=== PATIENT | male | born 1950 | race Caucasian/White ===

== ENCOUNTER → 2017-06-20 | Outpatient (CLI) | payer OTHER ==
--- NOTE | 2017-06-20 11:20 | DIAGNOSTIC IMAGING REPORT ---
KUB CLINICAL HISTORY: Nephrolithiasis. FINDINGS: 2 AP supine abdominal radiographs are compared to study dated 12/12/2014 and correlated with abdominal CT dated 12/31/2014. There is a nonobstructed abdominal bowel gas pattern. There are at least 3 nonobstructing calculi identified in each kidney measuring up to 5 mm. There is no radiographic evidence of ureteral stone. The skeletal structures are osteopenic. Lumbosacral spondylosis is observed. IMPRESSION: Small bilateral nonobstructing renal calculi as above. Electronically signed by: Mark Landry M.D. 06/20/2017 11:18 AM Dictated Date/Time: 06/20/2017 11:17 AM
== END | disposition home or self-care (01) ==
LOC: C.RAD 10:55
PROVIDERS: ATTEND Urology
DX: N20.0 Calculus of kidney (principal)

== ENCOUNTER 2020-03-07 10:20 | Observation (INO) ==
--- NOTE | 2020-02-07 14:18 | PAT Medication Instructions ---
Medication Instructions Date of Service February 07, 2020 Home Medications diclofenac sodium 1 % topical gel 2 gm TOP QID PRN montelukast 10 mg tablet 10 mg PO QAM pantoprazole 40 mg tablet,delayed release 40 mg PO QAM rivaroxaban 20 mg tablet 20 mg PO HS rosuvastatin 10 mg tablet 10 mg PO HS albuterol sulfate 1 inh INHALATION QID PRN cannabidiol 100 mg PO DAILY potassium citrate 15 meq PO QAM ASK your prescriber and surgeon rivaroxaban 20 mg tablet 20 mg PO HS (needs to be held 72 hours in order to get spinal anesthesia) STOP taking 24 hours before surgery diclofenac sodium 1 % topical gel 2 gm TOP QID PRN DO NOT take the morning of surgery montelukast 10 mg tablet 10 mg PO QAM potassium citrate 15 meq PO QAM cannabidiol 100 mg PO DAILY Take morning of surgery With a small sip of water, OTHERWISE NOTHING TO EAT OR DRINK AFTER MIDNIGHT: pantoprazole 40 mg tablet,delayed release 40 mg PO QAM albuterol sulfate 1 inh INHALATION QID PRN (use if needed; please bring with you to hospital day of surgery if possible) Take evening before surgery rosuvastatin 10 mg tablet 10 mg PO HS albuterol sulfate 1 inh INHALATION QID PRN (if needed) Other Notes If you have any questions please call us at [phone] or [phone] or [phone] or [phone]
--- NOTE | 2020-02-09 15:07 | PAT Medication Instructions ---
Medication Instructions Date of Service February 09, 2020 Home Medications diclofenac sodium 1 % topical gel 2 gm TOP QID PRN montelukast 10 mg tablet 10 mg PO QAM pantoprazole 40 mg tablet,delayed release 40 mg PO QAM rivaroxaban 20 mg tablet 20 mg PO HS rosuvastatin 10 mg tablet 10 mg PO HS albuterol sulfate 1 inh INHALATION QID PRN cannabidiol 100 mg PO DAILY potassium citrate 15 meq PO QAM ASK your prescriber and surgeon rivaroxaban 20 mg tablet 20 mg PO HS -- MUST BE HELD FOR AT LEAST 3 FULL DAYS BEFORE SURGERY FOR SPINAL ANESTHESIA. STOP taking 24 hours before surgery diclofenac sodium 1 % topical gel 2 gm TOP QID PRN DO NOT take the morning of surgery montelukast 10 mg tablet 10 mg PO QAM cannabidiol 100 mg PO DAILY potassium citrate 15 meq PO QAM Take morning of surgery With a small sip of water, OTHERWISE NOTHING TO EAT OR DRINK AFTER MIDNIGHT: pantoprazole 40 mg tablet,delayed release 40 mg PO QAM albuterol sulfate 1 inh INHALATION QID PRN (if needed) Take evening before surgery rosuvastatin 10 mg tablet 10 mg PO HS albuterol sulfate 1 inh INHALATION QID PRN (if needed) Other Notes If you have any questions please call us at [phone] or [phone] or [phone] or [phone]
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
[2020-02-10 10:19] LABS: Basophils # (auto) 0.02 K/uL (0-0.2); Basophils % (auto) 0.3 %; Eosinophils # (auto) 0.34 K/uL (0-0.5); Eosinophils % (auto) 5.1 %; Hematocrit (blood only) 43.3 % (42-52); Hemoglobin 14.6 g/dL (14.0-18.0); Immature Granulocytes # (auto) 0.01 K/uL (0.00-0.02); Immature Granulocytes % (auto) 0.2 %; Lymphocytes # (auto) 1.48 K/uL (1.2-3.4); Lymphocytes % (auto) 22.3 %; Mean Corpuscular Hemoglobin 30.6 pg (25-34); Mean Corpuscular Hgb Conc 33.7 g/dL (32-36); Mean Corpuscular Volume 90.8 fL (80-100); Mean Platelet Volume 10.7 fL (7.4-10.4); Monocytes # (auto) 0.55 K/uL (0.11-0.59); Monocytes % (auto) 8.3 %; Neutrophils # (auto) 4.23 K/uL (1.4-6.5); Neutrophils % (auto) 63.8 %; Platelet Count 183 K/uL (130-400); RDW Coefficient of Variation 13.4 % (11.5-14.5); RDW Standard Deviation 44.6 fL (36.4-46.3); Red Blood Count 4.77 M/uL (4.7-6.1); White Blood Count 6.63 K/uL (4.8-10.8)
--- NOTE | 2020-02-10 10:21 | XRay Report ---
XR chest Pre-admission PA/Lat HISTORY: 70 years-old Male pat preoperative exam. No acute chest complaints. COMPARISON: Chest radiographs 08/17/2013 TECHNIQUE: PA and lateral views of the chest FINDINGS: Cardiomediastinal and hilar silhouettes are within normal limits. There is no pneumothorax, pleural e ffusion, overt pulmonary edema or airspace consolidation typical for pneumonia. Ill-defined 11 mm lat eral left lung base opacity on the frontal view, not definitively seen on the lateral projection. Dorothea gs are mildly hyperinflated. Degenerative changes of the shoulders and spine. IMPRESSION: 1. Mild hyperinflation without acute process. 2. Ill-defined 11 mm lateral left lung base opacity may correlate with a nipple shadow. This could be correlated with follow-up radiograph with nipple markers. ACT 112: Negative or not required by law. The above report was generated using voice recognition software. It may contain grammatical, syntax o r spelling errors. Electronically signed by: Randolph Barrios M.D. 02/10/2020 10:19 AM
[2020-02-10 10:29] LABS: INR 1.1 (0.9-1.1); Partial Thromboplastin Ratio 1.3; Prothrombin Time 11.8 Seconds (9.0-12.0)
[2020-02-10 10:47] LABS: BUN Creatinine Ratio 12.4 (10-20); Creatinine Clr Calc Pharmacy 88.1 ml/min; Est GFR (African American) 85.7; Potassium 4.6 mmol/L (3.5-5.1)
--- NOTE | 2020-02-10 16:15 | Electrocardiogram Report ---
Test Reason : Blood Pressure : / mmHG Vent. Rate : 050 BPM Atrial Rate : 050 BPM P-R Int : 224 ms QRS Dur : 118 ms QT Int : 452 ms P-R-T Axes : 048 -50 -14 degrees QTc Int : 412 ms Sinus bradycardia with 1st degree A-V block Left anterior fascicular block Abnormal ECG No previous ECGs available Confirmed by Willian King ([id number]) on 02/10/2020 4:15:17 PM Referred By: Eulalio Guerrero Confirmed By:Willian King
--- NOTE | 2020-03-03 20:38 | History and Physical Report ---
DATE OF ADMISSION: 03/07/2020 CHIEF COMPLAINT: Bilateral knee pain and discomfort, left side greater than the right. HISTORY OF PRESENT ILLNESS: The patient is a 70-year-old gentleman, previous site superintendent of the [employer], who presents for treatment of his knees, specifically his left knee. He has got a several year history of left knee pain and discomfort that has gradually gotten worse over time. He did have a history of knee arthroscopy done in [place] in April of last year. It did not help at all. Things have just gotten worse. He has been pretty miserable with this. He has been through extensive conservative treatment including multiple aspirations and injections with steroids and viscosupplementation, which has not helped. Pain is mostly medial. He does have some global pain. His walking tolerance is about half a mile. He is fed up with this and it is limiting his lifestyle and he would like to have his left knee fixed. Over the past several months, he has developed pain in his right knee in a similar fashion. Not quite as severe. It does swell some. PAST MEDICAL HISTORY: Significant for, 1. Atrial fibrillation, on Xarelto. 2. Elevated cholesterol. 3. Asthma/COPD. 4. Mild obesity with a BMI of 34. 5. Kidney stones. 6. Sleep apnea. PAST SURGICAL HISTORY: Includes, 1. Laminectomy in 1987. 2. Left knee scope in 04/2019. ALLERGIES: SULFA AND PENICILLIN, WHICH BOTH CAUSE A RASH. CURRENT MEDICINES: Include, 1. Topical diclofenac. 2. Montelukast 10 mg. 3. Pantoprazole 40 mg. 4. Potassium 15 mEq a day. 5. Xarelto 20 mg a day. 6. Rosuvastatin 10 mg a day. SOCIAL HISTORY: A 70-year-old male. He is . Lives alone, lives with his dog. One drink per week. Chews snuff. One child. Does not smoke. FAMILY HISTORY: Significant for heart disease. REVIEW OF SYSTEMS: Significant for atrial fibrillation, on Xarelto, although his EKG preoperatively is sinus bradycardia. Denies any chest pain or shortness of breath. No history of DVT or PE. No known bleeding problems. PHYSICAL EXAMINATION: GENERAL: Shows a pleasant, fairly large middle-aged male. Looks to be in pretty good health. HEENT: Benign. NECK: Supple, no lymphadenopathy. LUNGS: Clear to auscultation. HEART: Has regular rate and rhythm. ABDOMEN: Soft, nontender, nondistended. EXTREMITIES: Grossly neurovascularly intact except as follows: Examination of left knee reveals the patient who walks independently. He does limp on the left side. He has got varus alignment to his knee with a moderate sized knee effusion. He is tender over the medial joint line. Range of motion about 5-10 degrees short of full extension to 120 degrees of flexion. There is no instability. Examination of the right knee reveals just a slight varus alignment. Small to moderate knee effusion. He is tender medially. Range of motion is 5-125. X-RAYS: X-rays of the left knee were reviewed. It shows advanced left knee medial compartment DJD. Looks like he has got a segment of avascular necrosis in the medial femoral condyle. He has got a little bit of tibial femoral subluxation. MRI of his knee from preoperatively revealed a full thickness cartilage loss of the medial tibial plateau and some subchondral marrow edema. He has got marrow edema in the medial femoral condyle as well. 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 He has failed conservative treatment including knee arthroscopy. He would like to have his left knee fixed. I do think his right knee is following behind. PLAN: We will take him to the operating room and do a left total knee replacement. The risks and benefits of this procedure were explained to the patient and include but not limited to DVT, PE, , infection, neurological injury, vascular injury, bleeding problem, pain, limited range of motion, stiffness, failure to relieve symptoms, incomplete relief of symptoms, need for further surgery in the future, fracture, leg length inequality, nerve palsy, persistent pain, etc. The patient understands and desires to proceed. Informed consent was obtained. His right knee is bothering him as well. We may consider aspirating and/or injecting this under anesthesia. We will check with him on the morning of surgery and make a definitive plan on that. He does know to hold the Xarelto 3 days preop. We will use Xarelto for DVT prophylaxis. He is planning to be discharged to home using [facility] home health program. He does live by himself. I did tell him that he might need some help.
[~2020-03-07 10:20] MED LIST: ACETAMINOPHEN 500 MG TAB PO SCH; BUPIVACAINE 0.5 % 5 MG/1 ML PF 10ML VIAL ONE; BUPIVACAINE LIPOSOME/PF 266 MG, BUPIVACAINE/EPINEPHRINE 50 ML, SODIUM CHLORIDE 0.9% 30 ... INFIL SCH; FAMOTIDINE 20 MG TAB PO SCH; GABAPENTIN 300 MG CAP PO SCH; LR 500ML BOLUS, THEN 15ML/HR IV SCH; LR 60ML/HR IV SCH; TRANEXAMIC ACID 1,000 MG **IV Intra-op IV SCH; ceFAZolin 2000MG 2,000 MG/15 ML SYR IV SCH
--- NOTE | 2020-03-07 10:32 | History & Physical Bridge Note ---
Date of Service March 07, 2020 History & Physical Bridge Note I have examined the patient, reviewed the History & Physical and in the interval since the performance of the History & Physical I have noted the following changes of clinical significance: Patient with increasing right knee pain and swelling. Desires aspiration of left knee under anesthesia. Added to consent.
--- NOTE | 2020-03-07 10:42 | History & Physical Bridge Note ---
Date of Service March 07, 2020 History & Physical Bridge Note I have examined the patient, reviewed the History & Physical and in the interval since the performance of the History & Physical I have noted the following changes of clinical significance: Correction from previous bridge note. We will aspirate the right knee
[2020-03-07] MEDS ORDERED: PROPOFOL IV EMULSION 10 MG/ML 20 ML VIAL IV ONE ×3 (10:52→14:28)
[2020-03-07] MEDS ORDERED: LIDOCAINE HCL 2% 2 ML VIAL/AMP(20MG/ML) INFIL ONE (10:52)
[2020-03-07] MEDS ORDERED: MIDAZOLAM HCL 1 MG/ML 2ML VIAL ONE ×2 (10:53)
[2020-03-07] MEDS ORDERED: SODIUM CHLORIDE 0.9% PF 50 ML VIAL ONE (11:27)
[2020-03-07] MEDS ORDERED: BUPIVACAINE LIPOSOME 1.3% 266 MG/20 ML VIAL ONE (11:27)
[2020-03-07] MEDS ORDERED: BACITRACIN INJ 50,000 UNIT VIAL ONE (11:28)
[2020-03-07] MEDS ORDERED: EPINEPHrine INJ 1 MG/ML AMP ONE (11:28)
[2020-03-07] MEDS ORDERED: BUPIVACAINE 0.25% 30 ML VIAL ONE (11:28)
[2020-03-07] MEDS ORDERED: ePHEDrine sulfate 50 MG/ML AMP IV PRN (12:01)
[2020-03-07] MEDS ORDERED: fentaNYL citrate 100 MCG/2 ML VIAL IV PRN (12:01)
[2020-03-07] MEDS ORDERED: ATROPINE SULFATE 0.1 MG/ML 10ML SYR IV PRN (12:01)
[2020-03-07] MEDS ORDERED: ONDANSETRON INJ 2 MG/ML 2 ML VIAL IV PRN ×2 (12:01→15:51)
[2020-03-07] MEDS ORDERED: ePHEDrine sulfate 50 MG/ML AMP ONE (14:28)
--- NOTE | 2020-03-07 14:30 | Post Operative Brief Note ---
PG Immediate Post Op with CF Date of Surgery March 07, 2020 Pre & Post Diagnosis Operation Date: 03/07/20 12:30 Pre-Op Diagnosis: Left Knee Degenerative Joint Disease; Right Knee Effusion Post-Op Diagnosis: Left Knee Degenerative Joint Disease; Right Knee Effusion I identified the patient and participated in the time-out.: Yes Procedure Operation Date: 03/07/20 12:30 Actual Procedures p Left Total Knee Arthroplasty(Left) - Eulalio Guerrero MD Right Knee Aspiration Surgeon Eulalio Guerrero MD Educational Administration Teacher Machelle, YEE Estimated Blood Loss 50 Findings Consistent with Post-Op Diagnosis Fluids 2700 cc Specimens Specimen Description: A. Left knee bone and tissue. Drains Hennessy Catheter and Hemovac Drain Anesthesia Type Spinal MAC Complications none Disposition Accompanied Patient To Recovery: No Disposition: Recovery Room
--- NOTE | 2020-03-07 15:05 | Anesthesiology Progress Note ---
Date of Service March 07, 2020 Anesthesia Post Procedure Vital Signs Vital Signs: Temp Pulse Pulse Resp BP BP Pulse Ox 03/07/20 14:55 59 L 20 101/75 93 03/07/20 14:45 60 12 110/75 95 03/07/20 14:37 98.2 F 66 15 106/68 94 03/07/20 11:52 64 20 120/71 95 03/07/20 10:56 98.1 F 66 18 138/84 97 Transfer of Care Handoff Completed per policy Notes Mental Status: alert / awake / arousable and participated in evaluation Patient Amnestic to Procedure: Yes Nausea / Vomiting: adequately controlled Pain: adequately controlled Airway Patency, RR, SpO2: stable & adequate BP & HR: stable & adequate Hydration State: stable & adequate Neuraxial Anesthesia: was administered and sensory block is resolving Anesthetic Complications: no major complications apparent and Pt Satisfied with anesthetic care
--- NOTE | 2020-03-07 15:08 | XRay Report ---
TWO VIEWS LEFT KNEE CLINICAL HISTORY: Postoperative examination. FINDINGS: AP and crosstable lateral portable views of the left knee are obtained. A left knee arthrop lasty is in near anatomic alignment. There has been undersurface remodeling of the patella. No acute fracture is seen. There are expected postoperative changes around the knee including skin clips, soft tissue edema, and subcutaneous gas. IMPRESSION: Expected postoperative changes status post left knee arthroplasty. No acute fracture is s een. ACT 112: Negative or not required by law. Electronically signed by: Mark Landry M.D. 03/07/2020 3:07 PM
[2020-03-07] MEDS ORDERED: ALBUTEROL HFA 8 GM INHALER INH PRN (15:51)
[2020-03-07] MEDS ORDERED: NALOXONE HCL 0.4 MG/1 ML VIAL/CARP IV PRN (15:51)
[2020-03-07] MEDS ORDERED: bisacodyL 10 MG SUPP PR PRN (15:51)
[2020-03-07] MEDS ORDERED: ALUMINUM/MAGNESIUM SUSP 30 ML UDC PO PRN (15:51)
[2020-03-07] MEDS ORDERED: MAGNESIUM HYDROXIDE SUSP 30 ML UDC PO PRN (15:51)
[2020-03-07] MEDS ORDERED: METOCLOPRAMIDE HCL INJ 5 MG/ML 2 ML VIAL IV PRN (15:51)
[2020-03-07] MEDS ORDERED: TAMSULOSIN HCL 0.4 MG CAP PO PRN (15:51)
[2020-03-07] MEDS ORDERED: HYDROmorphone INJ 0.5 MG/0.5 ML SYR IV PRN (15:51)
[2020-03-07] MEDS: SODIUM CHLORIDE 0.9% 1000ML 1,000 ML IV SCH ×2 (16:25→22:34)
[2020-03-07] MEDS: KETOROLAC TROMETHAMINE 15 MG/ML VIAL IV SCH ×2 (16:26→21:45)
[2020-03-07] MEDS: ASCORBIC ACID 500 MG TAB PO SCH (17:22)
[2020-03-07] MEDS: FERROUS GLUCONATE 324 MG TAB PO SCH (17:22)
--- NOTE | 2020-03-07 17:42 | Operative Report ---
Post Operative Report Pre & Post Diagnosis Operation Date: 03/07/20 12:30 Pre-Op Diagnosis: Left Knee Degenerative Joint Disease; Right Knee Effusion Post-Op Diagnosis: Left Knee Degenerative Joint Disease; Right Knee Effusion I identified the patient and participated in the time-out.: Yes Procedure Operation Date: 03/07/20 12:30 Actual Procedures p Left Total Knee Arthroplasty(Left) Right knee aspiration.- Eulalio Guerrero MD Surgeon Eulalio Guerrero MD Legal Advisor Machelle, YEE Estimated Blood Loss 50 Findings Consistent with Post-Op Diagnosis Operative findings revealed advanced left knee DJD with extensive grade 4 [id number] disease in the medial and patellofemoral compartments. He had a large knee joint effusion. Fluids 2700 cc. Specimens Left knee sent for pathology. Drains None. Anesthesia Type Spinal MAC Complications none Disposition Disposition: Recovery Room Indications Patient is a 70-year-old very active gentleman is had a year history of left knee pain greater in the right. He went through extensive conservative treatment A new knee arthroscopy done about 10 months ago done elsewhere. Did not get any relief from this and things of only gotten worse. X-rays show progressive the medial compartment arthritis. Failed all conservative care. He elected proceed with surgical treatment. Over the past several months he is developed increased pain and discomfort and swelling in his right knee peers had recurrent swelling which is been incapacitating. He like to have his right knee aspirated. Radiographs on this side were less than impressive and showed some mild knee arthritis. Description of Procedure Operative implants consist of: 1. Biomet Vanguard size 75 left posterior by femoral component. 2. Biomet size 83 tibial tray. 3. 10 mm posterior stabilized polyethylene insert. 4. 34 x 8 and half all poly-patella. Patient was taken to the operating identified and placed on the operating table supine position protectors were properly padded. IV antibiotics 5 by anesthesia team. A spinal anesthetic and abductor canal block had provided in the holding area. Hennessy cath was placed in sterile fashion. A left thigh turn was then placed. Attention was first drawn to the right knee. Nupathe right knee was prepped with alcohol. I then aspirated the right knee for about 20 to 25 cc of serous fluid it was not bloody and it looked noninflammatory. This was not sent for analysis. A 4 x 4 was placed over the aspiration site and followed by the Camilo mixon. Attention then drawn to the left leg. Left leg was elevated exsanguinated with use of an Esmarch and turns placed at 300 mmHg. An anterior approach to the left knee was then performed to longitudinal incision centered over the patella. Sharp dissection was got through subcutaneous tissue down to the extensor mechanism. A medial parapatellar arthrotomy incision was made. Some subperiosteal dissection was carried out medially. The fat pad was resected from each patella tendon. Lateral patellofemoral ligament was released. Patella was subluxated laterally and the knee was flexed. The osteophytes were taken off the distal femur. The ACL was absent. The PCL was released from the distal femur and the tibia subluxate anteriorly. The external tibial alignment jig was placed in the interface the tibia. I cannot really get this lateral enough so I elected to do an intramedullary cut. The tibial eminence was excised. I then reamed down the canal with a long intramedullary guide and then placed the tibial cutting guide on the intramedullary stem to a remove about a millimeter bone from most efficient aspect medial till plateau. Proximal tibial cut was made. The tibia sized to a size 83. Attention drawn the femur. The distal femur turned with a sharp drill bit intramedullary canal was suction. A left 6 degree valgus cutting guide was placed. Distal femoral cutting block was pinned in place but distal femoral cut was made to take an additional 3 mm of bone off the distal femur. The femur was then sized to a size 75. We did downsize a slightly. The AP cutting block was pinned parallel to the epicondylar axis which was 5 degrees external rotation. The anterior cut, anterior chamfer, posterior cut, posterior chamfer cuts were made. Box cutting guide was placed in just slight lateral box cut was made. The knee was flexed. The remnants of the medial lateral menisci were excised. The osteophytes were taken off the posterior aspect the femur. A trial femoral component was placed but the tibial tray was pinned in maximum external rotation and the drill and stem punch were used to create defect in proximal tip for the tibial tray. Knee was then trialed and the 10 mm insert fit most appropriately. Attention drawn the patella. Patella was cleaned of all soft tissues. Patella thickness measured 25 mm in thickness was cut down to 15. Sized to a size 34 patella. Locals were drilled for 34 patella. The lateral osteophyte is moved. Patella button was placed. Knee was taken through range of motion and the patella tracked nicely with no thumbs test. Attention drawn to place the permanent components. All trial components were removed. A bone plug was placed in the distal femur limit blood loss. I also placed a bone plug in the tibia to prevent cement extravasation down the canal. A double batch Palacos G cement was mixed. Biomet Vanguard size 75 left posterior by femoral component, size 83 tibial tray, a 10 mm posterior box polyethylene insert, and a 34 x 8 and half all poly- patella then cement in place. Knee was brought out in full extension total cement hardened. Final cement check was then performed. The pericapsular tissues were injected with total 100 cc of combination of 20 cc of Exparel, 30 cc normal saline, 50 cc of quarter percent Marcaine with epinephrine. Patient did receive 1 g of tranexamic acid per the tech was then let down for final tourniquet time of 74 minutes. Hemostasis assured use electrocautery. The wounds once again irrigated. Extensor mechanism closed with combination 1 PDS suture #1 Vicryl suture in [id number] fashion. Extensor mechanism checked found to be intact the subcutaneous tissue then closed with 2 Dexon suture in a buried interrupted fashion the skin was closed skin jenn. Leg was then cleaned dried a sterile dressing composed Xeroform, 4 x 4's, sterile cast padding, Abisai bandage were applied. Patient transferred to the recovery room in stable condition. Patient tolerated procedure well and there were no complications. Carlos Carty, my physician welder assistant, was present for the entire procedure. His assistance was required for proper patient positioning, prepping and draping, surgical exposure, performing the technical details of the operation, placement the implants, closure of the wound, and placement of the sterile bandage. I attest to the content of the Intraoperative Record and any orders documented therein. Any exceptions are noted below.
[2020-03-07] MEDS: ceFAZolin 2000MG 2,000 MG/15 ML SYR IV SCH (19:27)
[2020-03-07] MEDS: DOCUSATE SODIUM 100 MG CAP PO SCH (19:28)
[2020-03-07] MEDS: SENNA 8.6 MG TAB PO SCH (19:28)
[2020-03-07] MEDS ORDERED: TRANEXAMIC ACID / 0.7% NACL 1,000 MG/100 ML BAG IV SCH (20:30)
[2020-03-07] MEDS: TAPENTADOL HCL ER 50 MG TABCR PO SCH (20:57)
[2020-03-07] MEDS: ROSUVASTATIN CALCIUM 10 MG TAB PO SCH (20:57)
[2020-03-07] MEDS: ACETAMINOPHEN 500 MG TAB PO SCH (21:46)
[2020-03-08] MEDS: ceFAZolin 2000MG 2,000 MG/15 ML SYR IV SCH (03:48)
[2020-03-08] MEDS: KETOROLAC TROMETHAMINE 15 MG/ML VIAL IV SCH ×2 (03:48→09:50)
[2020-03-08] MEDS: SODIUM CHLORIDE 0.9% 1000ML 1,000 ML IV SCH (05:16)
[2020-03-08] MEDS: ACETAMINOPHEN 500 MG TAB PO SCH ×3 (05:35→21:12)
[2020-03-08 06:34] LABS: Hematocrit (blood only) 35.4 % (42-52); Hemoglobin 11.5 g/dL (14.0-18.0); Mean Corpuscular Hemoglobin 30.2 pg (25-34); Mean Corpuscular Hgb Conc 32.5 g/dL (32-36); Mean Corpuscular Volume 92.9 fL (80-100); Mean Platelet Volume 10.4 fL (7.4-10.4); Platelet Count 162 K/uL (130-400); RDW Coefficient of Variation 13.7 % (11.5-14.5); Red Blood Count 3.81 M/uL (4.7-6.1); White Blood Count 8.04 K/uL (4.8-10.8)
[2020-03-08 07:01] LABS: BUN Creatinine Ratio 12.6 (10-20); Creatinine Clr Calc Pharmacy 89.7 ml/min; Est GFR (African American) 88.9; Est GFR (Non-African American) 76.7; Potassium 4.1 mmol/L (3.5-5.1)
--- NOTE | 2020-03-08 07:35 | Orthopedic Progress Note ---
Date of Service March 08, 2020 Assessment & Plan (1) Status post total left knee replacement: He was seen and examined by Dr. Guerrero today. Continue PT/OT DVT prophylaxis: teds, scds, xarelto d/c planning: pt would like to go to [facility] rehab pain controlled. Admission and Anticipated Discharge Date Admission Date: March 07, 2020 Subjective 70 y/o male POD #1 left tka. He has some knee pain, but it is controlled.Not able to lift his leg on his own. Denies chest pain or shortness of breath. Physical Exam Physical Exam: alert and oriented. VSS Left knee: some dried blood drainage on the dressing. Dressing intact. He can DF/PF. NVI Results & Data ([facility]) Vital Signs (Past 12 Hours) Vital Signs Temp Pulse Resp BP Pulse Ox 03/08/20 03:48 36.7 C 71 20 117/69 95 03/07/20 23:12 36.7 C 73 18 129/69 93 PG Care Time/CCT Total # of Minutes Spent Total Time Spent with Patient: Total time spent is greater than 50% in coordination of care (as documented) at patient's floor/unit and/or counseling patient: Coding Level of Care Code None Diagnoses Status post total left knee replacement Z96.652
[2020-03-08] MEDS: oxyCODONE HCL IR 5 MG TAB (IMMEDIATE RELEASE) PO PRN ×2 (07:53→17:10)
--- NOTE | 2020-03-08 08:04 | Anesthesiology Progress Note ---
Date of Service March 08, 2020 Anesthesia Post Procedure Vital Signs Vital Signs: Temp Pulse Pulse Pulse Pulse Resp BP 03/08/20 07:00 36.6 C 63 18 03/08/20 03:48 36.7 C 71 20 03/07/20 23:12 36.7 C 73 18 03/07/20 18:32 36.3 C L 60 16 146/76 H 03/07/20 17:45 36.4 C L 58 L 16 158/94 H 03/07/20 16:42 36.5 C 56 L 16 03/07/20 16:12 36.4 C L 61 16 03/07/20 15:40 36.7 C 59 L 16 03/07/20 15:05 36.7 C 57 L 13 03/07/20 14:55 59 L 20 03/07/20 14:45 60 12 03/07/20 14:37 36.8 C 66 15 03/07/20 11:52 64 20 120/71 03/07/20 10:56 36.7 C 66 18 138/84 BP Pulse Ox 03/08/20 07:00 124/71 95 03/08/20 03:48 117/69 95 03/07/20 23:12 129/69 93 03/07/20 18:32 97 03/07/20 17:45 98 03/07/20 16:42 149/79 H 99 03/07/20 16:12 130/79 97 03/07/20 15:40 126/72 95 03/07/20 15:05 113/72 95 03/07/20 14:55 101/75 93 03/07/20 14:45 110/75 95 03/07/20 14:37 106/68 94 03/07/20 11:52 95 03/07/20 10:56 97 Pain Intensity Left Knee: Pain Intensity: 0 Notes Mental Status: alert / awake / arousable Nausea / Vomiting: adequately controlled Pain: adequately controlled Airway Patency, RR, SpO2: stable & adequate BP & HR: stable & adequate Hydration State: stable & adequate Neuraxial Anesthesia: was administered and sensory block resolved Anesthetic Complications: no major complications apparent and Pt Satisfied with anesthetic care
[2020-03-08] MEDS ORDERED: POTASSIUM CITRATE 15 MEQ PO SCH (09:00)
[2020-03-08] MEDS: MEDICAL MARIJUANA PO SCH (09:17)
[2020-03-08] MEDS: TAPENTADOL HCL ER 50 MG TABCR PO SCH ×2 (09:49→21:12)
[2020-03-08] MEDS: MONTELUKAST SODIUM 10 MG TABLET PO SCH (09:49)
[2020-03-08] MEDS: PANTOprazole 40 MG TAB PO SCH (09:49)
[2020-03-08] MEDS: FERROUS GLUCONATE 324 MG TAB PO SCH ×2 (09:49→17:13)
[2020-03-08] MEDS: ASCORBIC ACID 500 MG TAB PO SCH ×2 (09:49→17:13)
[2020-03-08] MEDS: MULTIVITAMIN TAB PO SCH (09:49)
[2020-03-08] MEDS: DOCUSATE SODIUM 100 MG CAP PO SCH ×2 (09:50→21:12)
[2020-03-08] MEDS ORDERED: RIVAROXABAN 10 MG TABLET PO SCH ×2 (18:00)
[2020-03-08] MEDS: SENNA 8.6 MG TAB PO SCH (21:12)
[2020-03-08] MEDS: ROSUVASTATIN CALCIUM 10 MG TAB PO SCH (21:13)
[2020-03-09] MEDS: oxyCODONE HCL IR 5 MG TAB (IMMEDIATE RELEASE) PO PRN ×2 (00:03→07:32)
[2020-03-09] MEDS: ACETAMINOPHEN 500 MG TAB PO SCH (05:37)
[2020-03-09] MEDS: TAPENTADOL HCL ER 50 MG TABCR PO SCH (07:32)
[2020-03-09] MEDS: PANTOprazole 40 MG TAB PO SCH (07:33)
[2020-03-09] MEDS: MULTIVITAMIN TAB PO SCH (07:33)
[2020-03-09] MEDS: MONTELUKAST SODIUM 10 MG TABLET PO SCH (07:33)
[2020-03-09] MEDS: DOCUSATE SODIUM 100 MG CAP PO SCH (07:33)
[2020-03-09] MEDS: FERROUS GLUCONATE 324 MG TAB PO SCH (07:33)
[2020-03-09] MEDS: ASCORBIC ACID 500 MG TAB PO SCH (07:33)
[2020-03-09] MEDS: MEDICAL MARIJUANA PO SCH (07:34)
--- NOTE | 2020-03-09 11:08 | Progress Notes ---
DATE: 03/09/2020 SUBJECTIVE: A 70-year-old gentleman postop day 2 from a left knee replacement and right knee aspiration. He is doing pretty well. The right knee is feeling quite a bit better. The left knee is pretty sore. No chest pain or shortness of breath. Not feeling dizzy or lightheaded. OBJECTIVE: VITAL SIGNS: Temperature 36.9. Vital signs stable. GENERAL: Shows a pleasant, middle-aged male. He is walking around his room with a therapist when I visited him this morning. EXTREMITIES: Examination of the left leg reveals the dressing to be clean, dry and intact. His calf is soft and supple. Moderate swelling. He can dorsiflex and plantarflex his foot appropriately. ASSESSMENT: A 70-year-old gentleman postoperative day 2 from left knee replacement and right knee aspiration. Doing okay. Having some pain, which is not expected. Seems to be pretty well managed. PLAN: 1. DVT prophylaxis including thigh-high TEDs, SCDs, and back on Xarelto at a prophylactic dose and discharge on a therapeutic dose. 2. PT/OT. He can weight bear as tolerated. Left total knee protocol. 3. Pain control, doing okay with current pain regimen. 4. Disposition: He is hoping to be discharged to [facility] for a brief rehab stay as he lives by himself. He is orthopedically stable for discharge at any time a bed is available and he can be approved and accepted.
--- NOTE | 2020-03-13 09:26 | Discharge Summary ---
Date of Service March 13, 2020 Admission HPI Per Admitting Provider Documented in the H & P Admission Exam (Per Admitting) Constitutional Documented in the H & P Discharge Data Consultations 03/07/20 15:51 Consult Case Management - Discharge Planning Routine Procedures Performed Operation Date: 03/07/20 12:30 Actual Procedures p Left Total Knee Arthroplasty(Left) - Eulalio Guerrero MD Hospital Course (1) Status post total left knee replacement: This patient is a 70 year old male admitted on 03/07/20 and underwent left total knee replacement and right knee aspiration. He tolerated the procedure well and there were no complications. Transferred to the PACU post op and later to the orthopedic floor for further care. He was given ancef for antibiotic prophylaxis. He was also given CLIFFORD stockings, SCDs, and xarelto for DVT prophylaxis. Hemoglobin, hematocrit, and vital signs were monitored during his hospital stay and remained stable. Did not require any blood transfusions. There were no complications during his hospital stay. By post op day #2 the patient was tolerating a regular diet, pain was reasonably controlled with oral pain medicine, and he was participating in physical therapy. On post op day #2 the patient was discharged to a rehab facility. He was given printed discharge instructions including prescriptions for extra strength tylenol and oxycodone. Continue physical therapy, weight bearing as tolerated. Continue CLIFFORD stockings. Follow up approximately 2 weeks post op or sooner if there are problems or concerns. Coding Level of Care Code None Diagnoses Status post total left knee replacement Z96.652
== END 2020-03-09 12:42 ==
LOC: ASU 10:20 → 3E 10:20

== ENCOUNTER 2020-08-31 05:31 | Observation (INO) ==
--- NOTE | 2020-08-10 15:07 | PAT Medication Instructions ---
Medication Instructions Date of Service August 10, 2020 Home Medications diclofenac sodium 1 % topical gel 2 gm TOP QID PRN montelukast 10 mg tablet 10 mg PO QAM pantoprazole 40 mg tablet,delayed release 40 mg PO QAM rivaroxaban 20 mg tablet 20 mg PO HS rosuvastatin 10 mg tablet 10 mg PO HS albuterol sulfate 1 inh INHALATION QID PRN potassium citrate 15 meq PO QAM ASK your prescriber and surgeon rivaroxaban 20 mg tablet 20 mg PO HS (in order for spinal anesthesia, Rivaroxaban/Eliquis needs to be stopped 72 hours/3 days before surgery. Please check if okay with doctor that prescribes this to you) STOP taking 24 hours before surgery diclofenac sodium 1 % topical gel 2 gm TOP QID PRN DO NOT take the morning of surgery montelukast 10 mg tablet 10 mg PO QAM potassium citrate 15 meq PO QAM Take morning of surgery With a small sip of water, OTHERWISE NOTHING TO EAT OR DRINK AFTER MIDNIGHT: pantoprazole 40 mg tablet,delayed release 40 mg PO QAM albuterol sulfate 1 inh INHALATION QID PRN (use if needed; please bring with you to hospital day of surgery if possible) Take evening before surgery rosuvastatin 10 mg tablet 10 mg PO HS albuterol sulfate 1 inh INHALATION QID PRN (if needed) Other Notes If you have any questions please call us at [phone] or [phone] or [phone] or [phone]
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
--- NOTE | 2020-08-16 10:13 | XRay Report ---
XR chest Pre-admission PA/Lat HISTORY: 70 years-old Male pat preoperative exam. No acute chest complaints COMPARISON: Chest radiograph 02/10/2020 TECHNIQUE: PA and lateral views of the chest FINDINGS: Cardiomediastinal and hilar silhouettes are within normal limits. There is no pneumothorax, pleural e ffusion, airspace consolidation or overt pulmonary edema. Probable nipple shadow of the left lung bas e, 10 mm. Findings suggest prior resection of the distal right clavicle. Degenerative changes of the shoulders and spine. IMPRESSION: No acute process. ACT 112: Negative or not required by law. The above report was generated using voice recognition software. It may contain grammatical, syntax o r spelling errors. Electronically signed by: Randolph Barrios M.D. 08/16/2020 10:12 AM
[2020-08-16 10:47] LABS: Basophils # (auto) 0.01 K/uL (0-0.2); Basophils % (auto) 0.2 %; Eosinophils # (auto) 0.34 K/uL (0-0.5); Eosinophils % (auto) 5.9 %; Hematocrit (blood only) 43.9 % (42-52); Hemoglobin 14.5 g/dL (14.0-18.0); Immature Granulocytes # (auto) 0.01 K/uL (0.00-0.02); Immature Granulocytes % (auto) 0.2 %; Lymphocytes # (auto) 1.03 K/uL (1.2-3.4); Lymphocytes % (auto) 17.9 %; Mean Corpuscular Hemoglobin 29.3 pg (25-34); Mean Corpuscular Volume 88.7 fL (80-100); Mean Platelet Volume 10.8 fL (7.4-10.4); Monocytes # (auto) 0.53 K/uL (0.11-0.59); Monocytes % (auto) 9.2 %; Neutrophils # (auto) 3.85 K/uL (1.4-6.5); Neutrophils % (auto) 66.6 %; Platelet Count 208 K/uL (130-400); RDW Coefficient of Variation 14.3 % (11.5-14.5); RDW Standard Deviation 46.5 fL (36.4-46.3); Red Blood Count 4.95 M/uL (4.7-6.1); White Blood Count 5.77 K/uL (4.8-10.8)
[2020-08-16 11:03] LABS: Partial Thromboplastin Ratio 1.2; Partial Thromboplastin Time 31.2 Seconds (21.0-31.0); Prothrombin Time 10.6 Seconds (9.0-12.0)
[2020-08-16 11:47] LABS: BUN Creatinine Ratio 13.9 (10-20); Blood Urea Nitrogen 13 mg/dl (7-18); C Reactive Protein < 0.29 mg/dl (0-0.29); Calcium 9.7 mg/dl (8.5-10.1); Carbon Dioxide 28 mmol/L (21-32); Chloride 109 mmol/L (98-107); Creatinine Clr Calc Pharmacy 95.4 ml/min; Est GFR (African American) 94.7; Est GFR (Non-African American) 81.7; Glucose 95 mg/dl (70-99); Potassium 5.1 mmol/L (3.5-5.1); Sodium 140 mmol/L (136-145)
--- NOTE | 2020-08-26 19:38 | History and Physical Report ---
DATE OF ADMISSION: 08/31/2020 CHIEF COMPLAINT: Right knee pain, discomfort, swelling and instability. HISTORY OF PRESENT ILLNESS: The patient is a 70-year-old gentleman, previous school health assistant, who presents for surgical treatment of his right knee. He is now about 5-1/2 months out from a left knee replacement done for avascular necrosis with history of knee arthroscopy in the past. Over the past 6 months, he has developed a similar pain, discomfort, and progressive swelling in his right knee. He has been through extensive conservative treatment including steroid shots and viscosupplementation, which really have not helped much at all. His left knee is now doing well. He is limited by his right knee pain and discomfort. Cannot walk more than a couple blocks. He has been pretty miserable with this. X-rays show progressive loss of his medial joint space, likely related to AVN. PAST MEDICAL HISTORY: 1. Atrial fibrillation, on Xarelto. 2. Elevated cholesterol. 3. COPD. 4. Mild obesity with a BMI of 34. 5. Sleep apnea. 6. Kidney stones. PAST SURGICAL HISTORY: Includes, 1. Laminectomy. 2. Left knee scope in 04/2019. 3. Left knee replacement done on 03/07/2020. ALLERGIES: SULFA AND PENICILLIN, WHICH CAUSE A RASH. CURRENT MEDICINES: Include, 1. Albuterol. 2. Topical diclofenac. 3. Montelukast. 4. Pantoprazole. 5. Potassium citrate. 6. Xarelto. 7. Rosuvastatin. SOCIAL HISTORY: A 70-year-old male. He is a retired gis administrator. Lives by himself. Does not smoke. FAMILY HISTORY: Noncontributory. REVIEW OF HISTORY: Negative for diabetes, neurologic problem, vascular problems or bleeding problems. He is on Xarelto. He has got AFib. No history of DVT or PE. PHYSICAL EXAMINATION: GENERAL: Shows a pleasant, fairly large middle-aged male. Looks to be in good health. HEENT: Benign. NECK: Supple, no lymphadenopathy. LUNGS: Clear to auscultation. HEART: Has a regular rate and rhythm. ABDOMEN: Soft, nontender, nondistended. EXTREMITIES: Grossly neurovascularly intact except as follows: Examination of both knees reveals the patient ambulates and clearly limps on his right side. Examination of the right knee reveals varus alignment. He has got a moderate-sized knee effusion. He is tender over the medial joint line. Range of motion 0-125. No instability. Examination of the left knee reveals a well-healed incision. Anatomic alignment. Minimal swelling. Range of motion 0-125. Good straight leg raise. X-RAYS: X-rays of the right knee are reviewed. It shows evidence of AVN in the medial femoral condyle. This has progressed significantly over the past 6 months. X-rays of the left knee show a well-positioned knee replacement. ASSESSMENT: A 70-year-old male 5-1/2 months out from a left knee replacement with multiple underlying medical comorbidities including atrial fibrillation, on Xarelto, kidney stones, chronic obstructive pulmonary disease, elevated cholesterol, and sleep apnea, with avascular necrosis of his right medial femoral condyle, collapse and progressive knee arthritis. He has failed conservative measures and would like to have his right knee fixed. PLAN: We discussed treatment options. I do think he is a good candidate for partial knee replacement on this side. We will plan to take him to the operating room and do a right partial knee replacement. If I get in there and see other arthritis, we will do a full knee replacement. The risks and benefits of this procedure were explained to the patient including but not limited to DVT, PE, , infection, neurological injury, vascular injury, bleeding problem, pain, limited range of motion, stiffness, failure to relieve his symptoms, incomplete relief of symptoms, need for further surgery in the future, fracture, leg length inequality, nerve palsy, dislocation, and need for revision surgery. The patient understands and desires to proceed. Informed consent was obtained. He knows to stop the Xarelto 3 days preop. We will use Xarelto as postoperative DVT prophylaxis. He lives by himself and may need some assistance initially.
[2020-08-31] MEDS ORDERED: ceFAZolin 2000MG 2,000 MG/15 ML SYR IV SCH (06:00)
[2020-08-31] MEDS ORDERED: FAMOTIDINE 20 MG TAB PO SCH (06:00)
[2020-08-31] MEDS ORDERED: LR 500ML BOLUS, THEN 15ML/HR IV SCH (06:00)
[2020-08-31] MEDS ORDERED: BUPIVACAINE LIPOSOME/PF 266 MG, BUPIVACAINE/EPINEPHRINE 50 ML, SODIUM CHLORIDE 0.9% 30 ... INFIL SCH (06:00)
[2020-08-31] MEDS ORDERED: LR 15ML/HR IV SCH (06:00)
[2020-08-31] MEDS ORDERED: TRANEXAMIC ACID 1,000 MG **IV Intra-op IV SCH (06:00)
[2020-08-31] MEDS ORDERED: GABAPENTIN 300 MG CAP PO SCH (06:00)
[2020-08-31] MEDS ORDERED: ACETAMINOPHEN 500 MG TAB PO SCH (06:00)
[2020-08-31] MEDS ORDERED: EPINEPHrine INJ 1 MG/ML AMP ONE ×2 (06:23→06:49)
[2020-08-31] MEDS ORDERED: DEXAMETHASONE SOD INJ 4 MG/ML VIAL ONE (06:24)
[2020-08-31] MEDS ORDERED: BUPIVACAINE 0.5 % 5 MG/1 ML PF 10ML VIAL ONE (06:24)
[2020-08-31] MEDS ORDERED: BUPIVACAINE 0.25% 30 ML VIAL ONE ×2 (06:24→06:49)
[2020-08-31] MEDS ORDERED: LIDOCAINE HCL 2% 2 ML VIAL/AMP(20MG/ML) INFIL ONE (06:42)
[2020-08-31] MEDS ORDERED: PROPOFOL IV EMULSION 10 MG/ML 20 ML VIAL IV ONE ×4 (06:42→08:18)
[2020-08-31] MEDS ORDERED: MIDAZOLAM HCL 1 MG/ML 2ML VIAL ONE (06:42)
[2020-08-31] MEDS ORDERED: fentaNYL citrate 100 MCG/2 ML VIAL ONE (06:43)
[2020-08-31] MEDS ORDERED: SODIUM CHLORIDE 0.9% PF 50 ML VIAL ONE (06:49)
[2020-08-31] MEDS ORDERED: BUPIVACAINE LIPOSOME 1.3% 266 MG/20 ML VIAL ONE (06:49)
[2020-08-31] MEDS ORDERED: BACITRACIN INJ 50,000 UNIT VIAL ONE (06:49)
--- NOTE | 2020-08-31 06:55 | History & Physical Bridge Note ---
Date of Service August 31, 2020 History & Physical Bridge Note I have examined the patient, reviewed the History & Physical and in the interval since the performance of the History & Physical I have noted the following changes of clinical significance: no changes noted
[2020-08-31] MEDS ORDERED: ONDANSETRON INJ 2 MG/ML 2 ML VIAL IV PRN ×2 (07:11→09:45)
[2020-08-31] MEDS ORDERED: ATROPINE SULFATE 0.1 MG/ML 10ML SYR IV PRN (07:11)
[2020-08-31] MEDS ORDERED: fentaNYL citrate 100 MCG/2 ML VIAL IV PRN (07:11)
[2020-08-31] MEDS ORDERED: ePHEDrine sulfate 50 MG/ML AMP IV PRN (07:11)
[2020-08-31] MEDS ORDERED: KETAMINE 50 MG/5 ML SYRINGE ONE (07:13)
--- NOTE | 2020-08-31 09:02 | Operative Report ---
Post Operative Report Pre & Post Diagnosis Operation Date: 08/31/20 07:00 Pre-Op Diagnosis: Right Knee Avascular Necrosis in the Medial Femoral Condyle with secondary DJD. Post-Op Diagnosis: Right Knee Avascular Necrosis in the Medial Femoral Condyle with secondary DJD. I identified the patient and participated in the time-out.: Yes Procedure Operation Date: 08/31/20 07:00 Actual Procedures p Right Unicompartmental Knee Arthroplasty(Right) - Eulalio Guerrero MD Surgeon Eulalio Guerrero MD Assembler Skylights ALETA Carty Estimated Blood Loss 25 Findings Consistent with Post-Op Diagnosis Operative findings revealed necrosis of the medial femoral condyle and secondary degenerative arthritic changes. This is isolated medial compartment. His ACL was intact. The patellofemoral and lateral compartments well preserved. He had a moderate to large knee joint effusion. Fluids 1200 cc. Specimens Right knee for pathology. Drains None. Anesthesia Type Spinal MAC Complications none Disposition Accompanied Patient To Recovery: No Disposition: Recovery Room Indications Patient is a 70-year-old fairly active gentleman is had a recent history of bilateral knee pain discomfort is gotten singly worse over the past couple years. This started on his left knee and he developed necrosis after previous knee arthroscopy done elsewhere. He had his left knee replaced 6 months ago and is done well from that. Over the past 6 months he developed increased pain discomfort and progressive arthritic change in the medial side of his right knee. Symptoms isolated to the medial side. X-rays show progressive loss of the joint space with the x-ray findings suggestive avascular necrosis. He el ected proceed with surgical treatment. He had no lateral complaints. Description of Procedure Operative implants consist of: 1. Biomet Greenleaf size large femoral component. 2. Biomet Greenleaf right medial size D tibial tray. 3. 3 mm mobile-bearing polyethylene insert. Patient was taken the operating identified and placed on the operating table s upine position protectors were properly padded. IV antibiotics tried by anesthesia team. A spinal anesthetic and abductor canal block had provided holding area. Hennessy catheter was placed in sterile fashion. Right thigh turn was then placed in the right lower extremities and prepped and draped in usual sterile fashion. The right leg was elevated exsanguinated with use of an Esmarch and tourniquet placed at 3 mmHg. An anterior approach of the right knee was then performed to longitudinal incision beginning at the superior pole of the patella and extending just medial to the tibial tubercle. Sharp dissection got through subcutaneous tissue down to the extensor mechanism. A medial parapatellar arthrotomy incision was made. Some subperiosteal dissection was carried out medially. Great care was taken to protect the medial collateral ligament at all times. The fat pad was resected. I then examined the knee. The ACL was intact. The lateral compartment and patellofemoral compartments were well preserved. He did have advanced degenerative changes in the medial femoral condyle suggestive of AVN. We elected proceed with a partial knee replacement. The femur was sized to a size large. The femoral spoon was placed. It was attached to the external tibial alignment jig with the 4G clamp. The tibial cutting jig was pinned in place. The proximal tibial cut was made. The tibia was sized to a size D. Attention drawn the femur. The distal femur turned the sharp drill. Intramedullary adam was placed. A large femoral component was then placed and attached to the IM adam. The holes were drilled for the femoral component. Posterior cutting guide was placed and the posterior cut was made. The 0 spigot was used to mill the distal femur. Then trialed the knee and the 3 feeler gauge fit appropriately in flexion and the 2 in extension. We then used a #1 spigot milled the distal femur. I then did curette some of this necrotic bone from the medial femoral condyle. We then trialed the knee in the 3 insert fit most appropriately in both flexion and extension. It was a little snug in flexion and I elected to accept this. All trial implants were removed. The posterior osteophyte cutting guide was placed and the posterior osteophyte was removed. The anterior milling device was used to create the relief in the anterior femur for the femoral component. I then used the cement drill to drill some holes in the distal femur. The tibial tray was pinned in place and the toothbrush blade was used to create the keel for the tibial tray. I then trialed the knee once again and the 3 insert fit appropriately. Was a needle snug but I felt this was appropriate. We elect to place these implants. All trial implants were removed. The wound was irrigated with copious amounts of pulsatile lavage solution. I did inject locally with 100 cc of a combination of 20 cc of Exparel, 30 cc normal saline, 50 cc of quarter percent Marcaine with epinephrine. Patient did receive 1 g tranexamic acid. A single batch of Palacos G cement was mixed. A right medial size D tibial tray was then cemented in position followed by a large femoral component. A 3 feeler gauge was placed and the knee was brought out in about 30 degrees short of full extension total cement hardened. Final cement checkup then performed. We trialed the knee one more time and then placed a 3 mm permanent insert. The knee was stable. It was well balanced. Attention drawn toward closing. The wound was irrigated copious muscle pulsatile lavage solution. The tourniquet was let down for turn time 66 minutes. Hemostasis assured use electrocautery. Extensor mechanism closed with #1 Vicryl suture in a [id number] fashion. Extensor Maxon checked found to be intact the subcutaneous tissue then closed with 2 Dexon suture in buried nerve fascia skin was closed skin jenn. Leg was then cleaned dried a sterile dressing composed Xeroform, 4 x 4's, sterile cast padding, Abisai bandage were applied. Patient then transferred to the recovery room in stable condition. The patient tolerated the procedure well and there were no complications. Geo Carty, my physician retail event and sales assistant, was present for the entire procedure. His assistance was essential and required for appropriate patient positioning, prepping and draping, surgical exposure, performing the technical details of the operation, placement the implants, closure of the wound, and placement of the sterile bandage. I attest to the content of the Intraoperative Record and any orders documented therein. Any exceptions are noted below.
--- NOTE | 2020-08-31 09:22 | Anesthesiology Progress Note ---
Date of Service August 31, 2020 Anesthesia Post Procedure Vital Signs Vital Signs: Temp Pulse Pulse Resp BP BP Pulse Ox 08/31/20 09:15 52 L 16 118/71 98 08/31/20 09:05 49 L 17 112/70 99 08/31/20 08:55 36.0 C L 55 L 13 109/66 100 08/31/20 06:01 36.8 C 66 18 138/83 97 Pain Intensity Right Knee: Pain Intensity: 0 Transfer of Care Handoff Completed per policy Notes Mental Status: alert / awake / arousable Patient Amnestic to Procedure: Yes Nausea / Vomiting: adequately controlled Pain: adequately controlled Airway Patency, RR, SpO2: stable & adequate BP & HR: stable & adequate Hydration State: stable & adequate Neuraxial Anesthesia: was administered and sensory block is resolving Anesthetic Complications: no major complications apparent and Pt Satisfied with anesthetic care
--- NOTE | 2020-08-31 09:31 | XRay Report ---
XR knee RT 1 or 2V routine CLINICAL HISTORY: Surgical Post Op COMPARISON STUDY: None. FINDINGS: Status post medial unicondylar knee prosthesis. The hardware is intact. No fracture or disl ocation. Skin jenn are in place. IMPRESSION: Status post medial unicondylar knee prosthesis. ACT 112: Negative or not required by law. Electronically signed by: Silvano New M.D. 08/31/2020 9:29 AM
[2020-08-31] MEDS ORDERED: bisacodyL 10 MG SUPP PR PRN (09:45)
[2020-08-31] MEDS ORDERED: METOCLOPRAMIDE HCL INJ 5 MG/ML 2 ML VIAL IV PRN (09:45)
[2020-08-31] MEDS ORDERED: NON-FORMULARY MEDICATION (Magnesium 100 mg Capsule) PO SCH (09:45)
[2020-08-31] MEDS ORDERED: HYDROmorphone INJ 0.5 MG/0.5 ML SYR IV PRN (09:45)
[2020-08-31] MEDS ORDERED: ALBUTEROL HFA 8 GM INHALER INH PRN (09:45)
[2020-08-31] MEDS ORDERED: TAMSULOSIN HCL 0.4 MG CAP PO PRN (09:45)
[2020-08-31] MEDS ORDERED: MAGNESIUM HYDROXIDE SUSP 30 ML UDC PO PRN (09:45)
[2020-08-31] MEDS ORDERED: NALOXONE HCL 0.4 MG/1 ML VIAL/CARP IV PRN (09:45)
[2020-08-31] MEDS ORDERED: oxyCODONE HCL IR 5 MG TAB (IMMEDIATE RELEASE) PO PRN (09:45)
[2020-08-31] MEDS ORDERED: ALUMINUM/MAGNESIUM SUSP 30 ML UDC PO PRN (09:45)
[2020-08-31] MEDS: SODIUM CHLORIDE 0.9% 1000ML 1,000 ML IV SCH ×3 (10:20→22:52)
[2020-08-31] MEDS: PANTOprazole 40 MG TAB PO SCH (11:02)
[2020-08-31] MEDS: MONTELUKAST SODIUM 10 MG TABLET PO SCH (11:02)
[2020-08-31] MEDS: MULTIVITAMIN TAB PO SCH (11:03)
[2020-08-31] MEDS: KETOROLAC TROMETHAMINE 15 MG/ML VIAL IV SCH ×3 (11:03→23:47)
[2020-08-31] MEDS: DOCUSATE SODIUM 100 MG CAP PO SCH ×2 (11:03→21:33)
[2020-08-31] MEDS: TAPENTADOL HCL ER 50 MG TABCR PO SCH ×2 (11:06→21:33)
[2020-08-31] MEDS: ACETAMINOPHEN 500 MG TAB PO SCH ×2 (12:55→21:33)
[2020-08-31] MEDS: ceFAZolin 2000MG 2,000 MG/15 ML SYR IV SCH ×2 (14:31→23:04)
--- NOTE | 2020-08-31 15:59 | Progress Notes ---
DATE: 08/31/2020 SUBJECTIVE: A 70-year-old gentleman postop from a right partial knee replacement. He is doing well and really not having any pain yet. No chest pain or shortness of breath. Not feeling dizzy or lightheaded. OBJECTIVE: VITAL SIGNS: Temperature 36.6. Vital signs are stable. GENERAL: Shows a pleasant, middle-aged male. He is sitting up in his bedside chair and looks comfortable. LUNGS: Clear to auscultation. HEART: Has a regular rate and rhythm. ABDOMEN: Soft, nontender, nondistended. EXTREMITIES: Grossly neurovascularly intact except as follows: Examination of the right leg reveals the dressing to be clean, dry, and intact. He can dorsiflex and plantarflex his foot appropriately. He can do a good straight leg raise. X-RAYS: X-rays of the right knee from recovery room are reviewed. It shows a right partial knee replacement. Components looked to be in good position. No signs of problems. ASSESSMENT: A 70-year-old gentleman postoperative from a right partial knee replacement, doing well. His pain is controlled. He is neurologically intact. PLAN: 1. DVT prophylaxis including thigh-high TEDs, SCDs, and we will start him back on his Xarelto at a prophylactic dose tomorrow and when he is discharged, he will go on a therapeutic dose. 2. PT/OT. Weight bear as tolerated. Right total knee protocol. 3. Pain control, doing okay with current pain regimen. 4. IV antibiotics x24 hours. 5. Disposition: Plan to discharge to home and he is going to have some home health for a period of time.
[2020-08-31] MEDS: ASCORBIC ACID 500 MG TAB PO SCH (16:09)
[2020-08-31] MEDS ORDERED: ROSUVASTATIN CALCIUM 10 MG TAB PO SCH (21:00)
[2020-08-31] MEDS ORDERED: SENNA 8.6 MG TAB PO SCH (21:00)
[2020-09-01] MEDS: KETOROLAC TROMETHAMINE 15 MG/ML VIAL IV SCH (05:44)
[2020-09-01] MEDS: ACETAMINOPHEN 500 MG TAB PO SCH ×2 (05:44→13:43)
[2020-09-01] MEDS: SODIUM CHLORIDE 0.9% 1000ML 1,000 ML IV SCH (05:47)
[2020-09-01 06:00] LABS: Hematocrit (blood only) 40.4 % (42-52); Hemoglobin 13.6 g/dL (14.0-18.0); Mean Corpuscular Hemoglobin 29.2 pg (25-34); Mean Corpuscular Hgb Conc 33.7 g/dL (32-36); Mean Corpuscular Volume 86.9 fL (80-100); Mean Platelet Volume 10.9 fL (7.4-10.4); Platelet Count 178 K/uL (130-400); RDW Coefficient of Variation 14.2 % (11.5-14.5); RDW Standard Deviation 44.9 fL (36.4-46.3); Red Blood Count 4.65 M/uL (4.7-6.1); White Blood Count 9.73 K/uL (4.8-10.8)
[2020-09-01 06:23] LABS: BUN Creatinine Ratio 17.1 (10-20); Calcium 8.9 mg/dl (8.5-10.1); Creatinine Clr Calc Pharmacy 87.8 ml/min; Est GFR (African American) 85.7; Potassium 4.4 mmol/L (3.5-5.1)
[2020-09-01 07:02] VITALS: TEMP 97.5
[2020-09-01] MEDS ORDERED: dexAMETHasone 4 MG TAB PO SCH (08:00)
[2020-09-01] MEDS: TAPENTADOL HCL ER 50 MG TABCR PO SCH (08:00)
[2020-09-01] MEDS: DOCUSATE SODIUM 100 MG CAP PO SCH (08:00)
[2020-09-01] MEDS: ASCORBIC ACID 500 MG TAB PO SCH (08:01)
[2020-09-01] MEDS: MONTELUKAST SODIUM 10 MG TABLET PO SCH (08:02)
[2020-09-01] MEDS: PANTOprazole 40 MG TAB PO SCH (08:02)
[2020-09-01] MEDS: MULTIVITAMIN TAB PO SCH (08:02)
[2020-09-01] MEDS ORDERED: RIVAROXABAN 10 MG TABLET PO SCH (09:00)
[2020-09-01 11:17] VITALS: O2SAT 95
[2020-09-01 13:42] VITALS: BP 136/76; PULSE 50
--- NOTE | 2020-09-01 14:03 | Progress Notes ---
DATE: 09/01/2020 SUBJECTIVE: A 70-year-old gentleman postop day 1 from a right partial knee replacement. He is doing well. Had a pretty good night. Pain is controlled. Therapy went well this morning. OBJECTIVE: VITAL SIGNS: Temperature is 36.4. Vital signs stable. GENERAL: Shows a pleasant, middle-aged male. He is sitting up in his bedside chair and looks pretty comfortable this morning. EXTREMITIES: Examination of the right leg reveals the dressing to be clean, dry, and intact. He can dorsiflex and plantarflex his foot appropriately. He bends his knee well. He can do a good straight leg raise. LABORATORY DATA: Hemoglobin 13.6. Hematocrit 40.4. Electrolytes are stable. ASSESSMENT: A 70-year-old gentleman postoperative day 1 from a right partial knee replacement, doing well. His pain is controlled. He is neurologically intact. PLAN: 1. DVT prophylaxis including thigh-high TEDs, SCDs, and we will put him back on his Xarelto. We will start him on a prophylactic dose today, but when he goes home, he can go back on his therapeutic dose. 2. PT/OT. Weight bear as tolerated. Right total knee protocol. 3. Pain control, doing well with current pain regimen. 4. Disposition: Plan to discharge to home with some home health likely later today after his dressing is changed.
--- NOTE | 2020-09-04 06:33 | Discharge Summary ---
Date of Service September 04, 2020 Discharge Data Consultations 08/31/20 09:45 Consult Case Management - Discharge Planning Routine Procedures Performed Operation Date: 08/31/20 07:00 Actual Procedures p Right Unicompartmental Knee Arthroplasty(Right) - Eulalio Guerrero MD Hospital Course (1) Status post right partial knee replacement: This patient is a 70 year old male admitted on 08/31/20 and underwent unicompartmental knee arthroplasty. He tolerated the procedure well and there were no complications. Transferred to the PACU post op and later to the orthopedic floor for further care. He was given ancef for antibiotic prophylaxis. He was also given CLIFFORD stockings, SCDs, and xarelto for DVT prophylaxis. Hemoglobin, hematocrit, and vital signs were monitored during his hospital stay and remained stable. Did not require any blood transfusions. There were no complications during his hospital stay. By post op day #1 the patient was tolerating a regular diet, pain was reasonably controlled with oral pain medicine, and he was participating in physical therapy. On post op day #1 the patient was discharged home and set up with home health care. He was given printed discharge instructions including prescriptions for extra strength tylenol and oxycodone . Continue physical therapy, weight bearing as tolerated. Continue CLIFFORD stockings. Follow up approximately 2 weeks post op or sooner if there are problems or concerns. Coding Level of Care Code None Diagnoses Status post right partial knee replacement Z96.651
== END 2020-09-01 14:08 | disposition home health service (06) ==
LOC: 3E 05:31 → ASU 05:31
DX: Z68.34 Body mass index [BMI] 34.0-34.9, adult; M17.11 Unilateral primary osteoarthritis, right knee; Z79.01 Long term (current) use of anticoagulants; I48.91 Unspecified atrial fibrillation; Z96.652 Presence of left artificial knee joint; E66.9 Obesity, unspecified; E78.00 Pure hypercholesterolemia, unspecified